=== PATIENT | male | born 1965 ===

== ENCOUNTER 2018-06-25 12:43 | Emergency (ER) | payer OTHER ==
[2018-06-25 12:56] VITALS: PULSE 54; TEMP 98.6
--- NOTE | 2018-06-25 13:18 | ED PDOC ---
HPI: Chest Pain Time Seen by Provider: 06/25/18 13:04 Chief Complaint (Nursing): Palpitations Chief Complaint (Provider): Palpitations History Per: Patient History/Exam Limitations: no limitations Onset/Duration Of Symptoms: Days (1) Additional Complaint(s): 53 years old male with history of hypertension presents to ED for evaluation of an intermittent funny sensation to chest associated with throat discomfort without any exciting factors onset last night. Patient reports he followed up with Dr. Pena 2 to 3 weeks ago and everything was normal. He states nothing makes the sensation better or worse. Patient denies any chest pain, shortness of breath, headache, nausea, vomiting, dizziness or taking any medications. He is on Enalapril for hypertension. PMD: Gene Pena Past Medical History Reviewed: Historical Data, Nursing Documentation, Vital Signs Vital Signs: Last Vital Signs Temp 98.6 F 06/25/18 12:53 Pulse 54 L 06/25/18 12:53 Resp 16 06/25/18 12:53 BP 180/99 H 06/25/18 12:53 Pulse Ox 98 06/25/18 12:53 - Medical History PMH: HTN Denies: Chronic Kidney Disease - Surgical History Surgical History: No Surg Hx - Family History Family History: States: Unknown Family Hx - Social History Current smoker - smoking cessation education provided: No Alcohol: None Drugs: Denies - Immunization History Hx Tetanus Toxoid Vaccination: No Hx Influenza Vaccination: No Hx Pneumococcal Vaccination: No - Home Medications Home Medications: Ambulatory Orders Medication Instructions Recorded No Known Home Med 04/02/15 - Allergies Allergies/Adverse Reactions: Allergies Allergy/AdvReac Type Severity Reaction Status Date / Time No Known Allergies Allergy Verified 06/25/18 12:53 Review of Systems ROS Statement: Except As Marked, All Systems Reviewed And Found Negative ENT: Positive for: Other (Throat discomfort) Cardiovascular: Positive for: Other (Funny sensation to chest). Negative for: Chest Pain Respiratory: Negative for: Shortness of Breath Gastrointestinal: Negative for: Nausea, Vomiting Neurological: Negative for: Headache, Dizziness Physical Exam - Reviewed Nursing Documentation Reviewed: Yes Vital Signs Reviewed: Yes - Physical Exam Appears: Positive for: Non-toxic, No Acute Distress Head Exam: Positive for: ATRAUMATIC, NORMOCEPHALIC Skin: Positive for: Normal Color, Warm, Dry Cardiovascular/Chest: Positive for: Regular Rate, Rhythm. Negative for: Murmur Respiratory: Positive for: Normal Breath Sounds. Negative for: Wheezing, Respiratory Distress Gastrointestinal/Abdominal: Positive for: Normal Exam, Soft. Negative for: Tenderness Back: Positive for: Normal Inspection. Negative for: L CVA Tenderness, R CVA Tenderness Extremity: Positive for: Normal ROM. Negative for: Tenderness, Pedal Edema, Swelling Neurologic/Psych: Positive for: Alert, Oriented (x3) - Laboratory Results Result Diagrams: 06/25/18 13:05 06/25/18 13:05 - ECG O2 Sat by Pulse Oximetry: 98 (RA) Pulse Ox Interpretation: Normal Medical Decision Making Medical Decision Making: Time: 1318 Initial Plan: --EKG --BMP --Troponin --CBC --Chest X-Ray 1334 Chest X-Ray FINDINGS: LUNGS: No active pulmonary disease. PLEURA: No significant pleural effusion identified. No pneumothorax apparent. CARDIOVASCULAR: Normal. OSSEOUS STRUCTURES: No significant abnormalities. VISUALIZED UPPER ABDOMEN: Normal. OTHER FINDINGS: None. IMPRESSION: No active disease. Scribe Attestation: Documented by Molly Lobato, acting as a scribe for Natalie Galeano MD. Provider Scribe Attestation: All medical record entries made by the Scribe were at my direction and personally dictated by me. I have reviewed the chart and agree that the record accurately reflects my personal performance of the history, physical exam, medical decision making, and the department course for this patient. I have also personally directed, reviewed, and agree with the discharge instructions and disposition. Disposition - Clinical Impression Clinical Impression: Palpitations - Patient ED Disposition Is Patient to be Admitted: No Doctor Will See Patient In The: Office Counseled Patient/Family Regarding: Diagnosis, Need For Followup - Disposition Disposition: Routine/Home Disposition Time: 14:48 Condition: IMPROVED Instructions: Palpitations Forms: [employer] (Albanian) Print Language: [place] - POA Present On Arrival: None
--- NOTE | 2018-06-25 13:35 | RAD ---
Date of service: 06/25/2018 HISTORY: chest discomfort COMPARISON: 04/02/2015 TECHNIQUE: Chest PA and lateral FINDINGS: LUNGS: No active pulmonary disease. PLEURA: No significant pleural effusion identified. No pneumothorax apparent. CARDIOVASCULAR: Normal. OSSEOUS STRUCTURES: No significant abnormalities. VISUALIZED UPPER ABDOMEN: Normal. OTHER FINDINGS: None. IMPRESSION: No active disease.
[2018-06-25 13:43] LABS: BASO % 0.4 % (0.0-2.0); EOS # 0.1 K/uL (0.0-0.7); EOS % 0.8 % (0.0-4.0); HEMOGLOBIN 14.3 g/dL (12.0-18.0); LYMPH # 2.8 K/uL (1.0-4.3); LYMPH % 40.8 % (20.0-40.0); MEAN CELL VOLUME 94.1 fl (80.0-94.0); MEAN CORPUSCULAR HEMOGLOBIN 31.5 pg (27.0-31.0); MEAN CORPUSCULAR HGB CONC 33.5 g/dL (33.0-37.0); MEAN PLATELET VOLUME 8.7 fl (7.2-11.7); MONO # 0.5 K/uL (0.0-0.8); MONO % 6.7 % (0.0-10.0); NEUT # 3.6 K/uL (1.8-7.0); NEUT % 51.3 % (50.0-75.0); RBC 4.53 Mil/uL (4.40-5.90)
[2018-06-25 13:48] VITALS: BP 134/76; RESP 23
[2018-06-25 13:55] LABS: BLOOD UREA NITROGEN 16 mg/dl (9-20); GFR NON-AFRICAN AMERICAN > 60
[2018-06-25 13:56] LABS: CALCIUM 9.8 mg/dL (8.4-10.2)
--- NOTE | 2018-06-25 14:48 | CARD ---
APPROVED REPORT Date of service: 06/25/2018 EKG Measurement Heart [id number] CO [id number] <Conclusion> Sinus bradycardia Otherwise normal ECG
[2018-06-25 14:49] VITALS: O2SAT 98
== END 2018-06-25 15:47 | disposition home or self-care (01) ==
LOC: EDBD 12:43 → H.ER 12:43
DX: R00.2 Palpitations (principal); I10 Essential (primary) hypertension; R07.89 Other chest pain

== ENCOUNTER 2018-06-25 20:27 | Emergency (ER) | payer OTHER ==
[2018-06-25 20:52] VITALS: TEMP 98
--- NOTE | 2018-06-25 22:53 | ED PDOC ---
HPI: General Adult Chief Complaint (Provider): Abnormal sensation Additional Complaint(s): 53 yo male with no known medical problems returns to ER for evaluation of "abnormal sensation" beginning from abdomen and radiating to the chest. No N/v/D. Pt states he was seen for the same and it returned so he came back to the ER. Pt denies feeling now. Pt states he was seen for the same by his PCP and given a medication of it. Pt states that he does not know what medication but it finished and it was daily. Pt states it is not pain. <Laurita Oneill - Last Filed: 06/25/18 22:36> <Jose Raphael - Last Filed: 06/28/18 04:35> Time Seen by Provider: 06/25/18 21:35 Chief Complaint (Nursing): Anxiety Past Medical History Reviewed: Historical Data, Nursing Documentation, Vital Signs Vital Signs: Last Vital Signs Temp 98.0 F 06/25/18 20:50 Pulse 75 06/25/18 20:50 Resp 16 06/25/18 20:50 BP 164/86 H 06/25/18 20:50 Pulse Ox 98 06/25/18 20:50 - Medical History PMH: HTN Denies: Chronic Kidney Disease - Family History Family History: States: Unknown Family Hx - Immunization History Hx Tetanus Toxoid Vaccination: No Hx Influenza Vaccination: No Hx Pneumococcal Vaccination: No <Laurita Oneill - Last Filed: 06/25/18 22:36> Vital Signs: Last Vital Signs Temp 98.0 F 06/25/18 20:50 Pulse 82 06/25/18 23:05 Resp 18 06/25/18 23:05 BP 147/88 06/25/18 23:05 Pulse Ox 100 06/25/18 23:05 <Jose Raphael - Last Filed: 06/28/18 04:35> - Home Medications Home Medications: Ambulatory Orders Medication Instructions Recorded No Known Home Med 04/02/15 - Allergies Allergies/Adverse Reactions: Allergies Allergy/AdvReac Type Severity Reaction Status Date / Time No Known Allergies Allergy Verified 06/25/18 20:50 Review of Systems ROS Statement: Except As Marked, All Systems Reviewed And Found Negative Constitutional: Negative for: Fever, Chills Cardiovascular: Negative for: Chest Pain, Palpitations Respiratory: Negative for: Cough Gastrointestinal: Positive for: Other. Negative for: Nausea, Vomiting, Abdomin al Pain, Diarrhea <Laurita Oneill - Last Filed: 06/25/18 22:36> Physical Exam - Reviewed Nursing Documentation Reviewed: Yes Vital Signs Reviewed: Yes - Physical Exam Appears: Positive for: Well, Non-toxic, No Acute Distress Head Exam: Positive for: ATRAUMATIC, NORMAL INSPECTION, NORMOCEPHALIC Skin: Positive for: Normal Color, Warm, DRY Eye Exam: Positive for: Normal appearance ENT: Positive for: Normal ENT Inspection Neck: Positive for: Normal, Painless ROM Cardiovascular/Chest: Positive for: Regular Rate, Rhythm Respiratory: Positive for: CNT, Normal Breath Sounds Gastrointestinal/Abdominal: Positive for: Normal Exam, Soft. Negative for: Tenderness Back: Positive for: Normal Inspection Extremity: Positive for: Normal ROM Neurologic/Psych: Positive for: Alert, Oriented <Laurita Oneill - Last Filed: 06/25/18 22:36> - ECG O2 Sat by Pulse Oximetry: 98 <Laurita Oneill - Last Filed: 06/25/18 22:36> Medical Decision Making Medical Decision Making: Ativan given in ER. 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 <Jose Raphael - Last Filed: 06/28/18 04:35>
[2018-06-25 23:06] VITALS: BP 147/88; PULSE 82; RESP 18; O2SAT 100
== END 2018-06-25 23:05 | disposition home or self-care (01) ==
LOC: H.ER 20:27
DX: F41.9 Anxiety disorder, unspecified (principal); I10 Essential (primary) hypertension